=== PATIENT | female | born 1955 | race Caucasian/White ===

== ENCOUNTER 2017-09-23 08:43 | Outpatient (CLI) | payer OTHER ==
--- NOTE | 2017-09-23 12:02 | CT ---
CT OF THE CHEST AND ABDOMEN AND PELVIS WITH IV CONTRAST AND ENTERIC CONTRAST: INDICATION: History of breast cancer. COMPARISON: None. FINDINGS: CHEST: No suspicious pulmonary nodule is evident. There is some subpleural thickening involving the postero lateral margin of the posterior segment of the right upper lobe best seen on image 88 of the coronal series. This may be related to prior therapy changes. There is some mild skin thickening involving the right breast with right breast biopsy clips. Recommend correlation with patient's clinical histo ry. No pathologically enlarged mediastinal, hilar, or axillary lymphadenopathy is evident. ABDOMEN: There is mild fatty infiltration of the liver. The spleen measures 11.8 cm in size. The pancreas an d adrenal glands are normal-appearing. The kidneys are normal-appearing. There are moderate calcifications involving the abdominal aorta. No aneurysmal dilatation is demonst rated. No lymphadenopathy is noted. PELVIS: The large bowel demonstrates a mild amount of retained stool within the colon. No apparent wall thic kening or pericolonic fluid collection is evident. The appendix is normal in the right lower quadran t. The small bowel is of normal caliber and has a normal appearance. No lymphadenopathy or free flu id is evident. The uterus is not visualized and is presumed to be surgically absent. No pathologica lly enlarged lymph nodes are seen within the pelvis. Osseous Structures: There is scattered degenerative and osteoarthritic change. No definite acute osseous abnormality is evident. No suspicious osteolytic or osteoblastic lesion is identified. IMPRESSION: 1. No CT evidence to suggest metastatic disease. 2. Some mild pleural thickening involving the posterolateral aspect of the right upper hemithorax ma y be related to prior therapy changes. Recommend correlation. No suspicious pulmonary nodule is adrienne dent. As a conservative measure, followup examination in 3-6 months may be helpful to document stabi lity. 3. Postsurgical changes of the right breast. 4. Mild fatty liver. 5. A mild amount of retained stool. 6. Nonvisualized uterus presumed to be surgically absent. POS: NASEEM
[2017-09-23] MEDS ORDERED: Iopamidol 370 76% 100 ML VIAL ONE (13:07)
== END 2017-09-23 08:44 | disposition home or self-care (01) ==
LOC: CT 08:43
PROVIDERS: ATTEND Internal Medicine Hematology & Oncology
DX: C50.919 Malignant neoplasm of unspecified site of unspecified female breast (principal); J92.9 Pleural plaque without asbestos; K59.00 Constipation, unspecified; K76.0 Fatty (change of) liver, not elsewhere classified; Z98.890 Other specified postprocedural states
CPT/HCPCS: 71260; 74177

== ENCOUNTER 2018-02-04 13:38 | Outpatient (CLI) | payer OTHER | END 2018-02-04 13:39 | disposition home or self-care (01) | LOC: BICMAMMO 13:38 | PROVIDERS: ATTEND Internal Medicine Hematology & Oncology | DX: Z08 Encounter for follow-up examination after completed treatment for malignant neoplasm (principal); B35.9 Dermatophytosis, unspecified; Z85.3 Personal history of malignant neoplasm of breast; Z80.3 Family history of malignant neoplasm of breast; N64.89 Other specified disorders of breast | CPT/HCPCS: 77066; G0279 ==

== ENCOUNTER 2019-02-10 14:48 | Outpatient (CLI) | payer OTHER ==
--- NOTE | 2019-02-11 08:49 | MMO ---
Bilateral MAMMO Bilat Diag [facility]. CLINICAL HISTORY: Patient is 63 years old and is seen for diagnostic exam. The patient has the following family history of breast cancer: sister, at age 48 and mother, at age 82. The patient has a history of Ultrasound guided core biopsy procedure revealed invasive ductal right breast carcinoma in October,. The patient has a history of right Ultrasound Guided Core Biopsy in October,. VIEWS: The views performed were: bilateral craniocaudal with tomosynthesis; bilateral mediolateral oblique with tomosynthesis; and bilateral mediolateral with tomosynthesis. FILMS COMPARED: The present examination has been compared to prior imaging studies performed at [facility] on 02/04/2018, at [facility] on 03/12/2015, and at [facility] on 11/22/2013 and 06/14/2014. This study has been interpreted with the assistance of computer-aided detection. MAMMOGRAM FINDINGS: There are scattered fibroglandular densities. There are no suspicious masses, suspicious calcifications, or new areas of architectural distortion. IMPRESSION: THERE IS NO MAMMOGRAPHIC EVIDENCE OF MALIGNANCY. A ROUTINE FOLLOW-UP MAMMOGRAM IN 1 YEAR IS RECOMMENDED. THE RESULTS OF THIS EXAM WERE SENT TO THE PATIENT. ACR BI-RADS Category 1 - Negative MAMMOGRAPHY NOTE: 1. A negative mammogram report should not delay a biopsy if a dominant of clinically suspicious mass is present. 2. Approximately 10% to 15% of breast cancers are not detected by mammography. 3. Adenosis and dense breasts may obscure an underlying neoplasm. Reported by: Edin CHANEY Electonically Signed: [id number]
== END 2019-02-10 14:49 | disposition home or self-care (01) ==
LOC: BICMAMMO 14:48
PROVIDERS: ATTEND Internal Medicine Hematology & Oncology
DX: C50.511 Malignant neoplasm of lower-outer quadrant of right female breast (principal); B35.9 Dermatophytosis, unspecified
CPT/HCPCS: 77066; G0279

== ENCOUNTER 2021-12-11 13:13 | Outpatient (CLI) | payer MEDICARE, OTHER | END 2021-12-11 13:14 | disposition home or self-care (01) | LOC: BICMAMMO 13:13 | PROVIDERS: ATTEND Internal Medicine Hematology & Oncology | DX: Z08 Encounter for follow-up examination after completed treatment for malignant neoplasm (principal); N63.10 Unspecified lump in the right breast, unspecified quadrant; Z85.3 Personal history of malignant neoplasm of breast; Z98.890 Other specified postprocedural states | CPT/HCPCS: 76642; 77065; G0279 ==